=== PATIENT | female | born 1975 | race Caucasian/White ===

== ENCOUNTER 2021-01-21 16:00 | Emergency (ER) | payer OTHER, SELFPAY ==
--- NOTE | ~2021-01-21 | CT_ITS ---
EXAMINATION: CT BRAIN W/O DATE: 01/21/2021 17:30 INDICATION: Left upper extremity numbness TECHNIQUE: Computed tomography (CT) of the head was performed without intravenous contrast. The dose- length product was 605.33 mGy-cm. Automated exposure control and iterative reconstruction technique w ere employed. COMPARISON: No prior studies for comparison. FINDINGS: Normal brain parenchymal volume for age. Normal mcclain-white differentiation. No acute intrac ranial hemorrhage, infarction, mass or mass effect. No ventriculomegaly or midline shift. Midline sagittal images demonstrate a normal corpus callosum, c raniovertebral junction and sella turcica. Basilar cisterns are patent. Paranasal sinuses and mastoids are pneumatized. No depressed skull fractures. IMPRESSION: 1. No acute intracranial abnormality. Reviewed, dictated and finalized at location A. IAL EVENTS DRIVER
--- NOTE | ~2021-01-21 | XR_ITS ---
EXAMINATION: XR chest 2V DATE: 01/21/2021 16:45 INDICATION: Chest pressure. TECHNIQUE: Frontal and lateral views of the chest were obtained. COMPARISON: Chest 2 views 10/19/2018, CT abdomen and pelvis 10/19/2018 FINDINGS: There is mild scarring at the lung apices. No pleural effusion or pneumothorax. The heart s ize is normal. IMPRESSION: 1. Stable mild scarring at the lung apices. Reviewed, dictated and finalized at location B. EY DISPATCHER
--- NOTE | 2021-01-21 16:23 | ECG_ITS ---
Measurements Intervals [place] Rate: 85 P: 69 HI: 189 QRS: 76 QRSD: 94 T: 44 QT: 350 QTc: 418 Interpretive Statements SINUS RHYTHM POSSIBLE LEFT ATRIAL ENLARGEMENT MINIMAL Q WAVES- INFERIOR LEADS BASELINE ARTIFACT- I, II, AVR, AVL BORDERLINE ECG Electronically Signed On 01-21-2021 17:05:37 TERRAZZO HELPER by Abdirashid Barros D.O.
[2021-01-21 16:27] VITALS: BP 169/91; PULSE 89; RESP 18; TEMP 36.3; O2SAT 100
--- NOTE | 2021-01-21 17:00 | ED.CHESTPAIN ---
HPI - Chest Pain General Chief Complaint: Chest Pain Stated Complaint: left arm numbness Time Seen by Provider: 01/21/21 17:00 Source: patient, family, RN notes reviewed and old records reviewed Mode of arrival: ambulatory Limitations: no limitations History of Present Illness HPI narrative: 45 years old white male presented to the ED with sudden onset of left upper extremity numbness, tingling, it felt weird, then started having pressure at the left side of neck left side of face and the head, blood pressure was elevated at this time,. Patient denies any fever, chills, nausea, vomiting, shortness of breath. History of depression, currently on no medications. Patient does not smoke or drink or uses drugs. Related Data Allergies Allergy/AdvReac Type Severity Reaction Status Date / Time latex Allergy Mild RASH/HIVES Verified 01/21/21 17:43 Penicillins Allergy Mild RASH/HIVES Verified 01/21/21 17:43 Review of Systems Review of Systems: CONSTITUTIONAL: Denies fever, chills, or sweats. EYES: Denies visual changes, redness, or discharge. ENT: Denies rhinorrhea, congestion, sore throat, or otalgia. CARDIOVASCULAR: Denies chest pain, palpitations, or edema. RESPIRATORY: Denies cough or dyspnea. GASTROINTESTINAL: Denies abdominal pain, nausea, vomiting, or diarrhea. GENITOURINARY: Denies dysuria or hematuria. SKIN: Denies rash or itching. MUSCULOSKELETAL: Denies back pain, joint pain, or myalgia. NEUROLOGIC: Denies headache, numbness, or weakness. PSYCHIATRIC: Denies anxiety or depression. Exam Narrative: General appearance: Well-developed, well-nourished, restless, at the bedside, patient is hyperventilating. Skin: Normal color Head: Normocephalic, nontraumatic Eyes: Clear conjunctiva ENT: Oropharynx normal, ears normal, nose normal Neck: Supple, nontender Chest and respiratory: Airway patent, no respiratory distress, no accessory muscle use Heart: Regular rate/rhythm Abdomen: Soft, nontender, no organomegaly, quiet bowel sounds Vascular: Normal peripheral pulses, normal capillary refill. Musculoskeletal: Normal range of motion, nontender back Neurologic: Alert and oriented ?3, FLOOR RENOVATOR is normal as tested, no gross motor deficit Course Course Emergency Course: Stable Vital Signs Vital signs: Vital Signs Temperature 36.3 C L 01/21/21 16:27 Pulse Rate 89 01/21/21 16:27 Respiratory Rate 18 01/21/21 16:27 Blood Pressure 169/91 H 01/21/21 16:27 Pulse Oximetry 100 01/21/21 16:27 Temperature 36.3 C L 01/21/21 16:27 Pulse Rate 85 01/21/21 18:04 Respiratory Rate 18 01/21/21 18:04 Blood Pressure 145/88 H 01/21/21 18:04 Pulse Oximetry 100 01/21/21 18:04 MDM - Chest Pain MDM Narrative Medical decision making narrative: Anxiety-like reaction is my concern. Differential Diagnosis Differential diagnosis: Likely other (Paresthesia, migraine headache, anxiety related symptoms) Lab Data Result diagrams: 01/21/21 16:58 01/21/21 16:58 Labs: Lab Results 01/21/21 01/21/21 01/21/21 Range/Units 16:58 16:58 17:38 WBC 8.5 (4.5-10.0) K/mm3 RBC 4.62 (4.2-5.4) M/mm3 Hgb 14.4 (12.0-15.0) g/dL Hct 41.3 (37.0-47.0) % MCV 89.4 (80-100) fl MCH 31.2 (26-34) pg MCHC 34.9 (32-36) g/dl RDW 11.8 (11.5-14.5) % Plt Count 353 (150-375) k/mm3 MPV 8.6 (7.4-10.4) fl Immature Gran % (Auto) 0.6 H (0-0.5) % Neut % (Auto) 59.8 (45.5-73.1) % Lymph % (Auto) 27.5 (18.3-44.2) % [place] % (Auto) 7.3 (2.6-8.5) % Eos % (Auto) 3.6 (0-4.4) % Baso % (Auto) 1.2 (0.2-1.2) % Lymph # (Auto) 2.34 (0.9-3.2) K/mm3 [place] # (Auto) 0.6 (0.1-0.6) K
[2021-01-21 17:04] LABS: Basophils Absolute Auto 0.1 K/mm3 (0.0-0.1); Basophils Percent Auto 1.2 % (0.2-1.2); Eosinophils Absolute Auto 0.3 K/mm3 (0-0.3); Eosinophils Percent Auto 3.6 % (0-4.4); Hematocrit 41.3 % (37.0-47.0); Hemoglobin 14.4 g/dL (12.0-15.0); Immature Granulocyte Absolute 0.05 K/mm3 (0.00-0.031); Immature Granulocyte Percent A 0.6 % (0-0.5); Lymphocytes Absolute Auto 2.34 K/mm3 (0.9-3.2); Lymphocytes Percent Auto 27.5 % (18.3-44.2); Mean Corpuscular HGB Conc 34.9 g/dl (32-36); Mean Corpuscular Hemoglobin 31.2 pg (26-34); Mean Corpuscular Volume 89.4 fl (80-100); Mean Platelet Volume 8.6 fl (7.4-10.4); Monocytes Absolute Auto 0.6 K/mm3 (0.1-0.6); Monocytes Percent Auto 7.3 % (2.6-8.5); Neutrophils Absolute Auto 5.1 K/mm3 (1.3-6.7); Neutrophils Percent Auto 59.8 % (45.5-73.1); Platelet Count Result 353 k/mm3 (150-375); Red Blood Count 4.62 M/mm3 (4.2-5.4); Red Cell Distribution Width 11.8 % (11.5-14.5); White Blood Count 8.5 K/mm3 (4.5-10.0)
[2021-01-21 17:21] LABS: Alanine Aminotransferase 13 U/L (4-35); Albumin Level 4.5 g/dL (3.5-5.1); Alkaline Phosphatase 68 U/L (38-126); Anion Gap 7 mmol/L (8-16); Aspartate Amino Transferase 22 U/L (14-36); Bilirubin,Total 0.4 mg/dL (0.2-1.3); Blood Urea Nitrogen 18 mg/dL (7-17); Calcium 9.6 mg/dL (8.4-10.2); Carbon Dioxide 28 mmol/L (22-30); Chloride 103 mmol/L (98-107); Estimated CRCL calculation 53 ml/min; Estimated Glomerular Filt Rate > 60; Glucose 93 mg/dL (65-110); Lipase 160 U/L (23-300); Potassium 4.1 mmol/L (3.4-5.0); Sodium 138 mmol/L (137-145)
[2021-01-21 17:32] LABS: Troponin I < 0.012 ng/mL (0.000-0.034)
[2021-01-21] MEDS: LORazepam INJ (*CRX) 2 MG/ML VIAL 1 MG IV PUSH (17:57)
[2021-01-21 17:59] VITALS: PULSE 87
[2021-01-21 18:03] LABS: Partial Thromboplastin Time 28.8 SECONDS (22.3-36.8); Prothrombin Time 12.9 Seconds (11.1-14.7)
[2021-01-21 18:04] VITALS: BP 145/88; PULSE 85; RESP 18; O2SAT 100
[2021-01-21 19:20] VITALS: BP 133/76; PULSE 100; RESP 18; O2SAT 100
== END 2021-01-21 19:20 | disposition home or self-care (01) ==
PROVIDERS: Emergency Provider Emergency Medicine; PCP Internal Medicine
DX: F45.8 Other somatoform disorders (principal)
CPT/HCPCS: 36415; 70450; 71046; 80053; 83690; 84484; 85025; 85610; 85730; 93005; 96374; 99284; J2060

== ENCOUNTER 2023-05-08 13:23 | Emergency (ER) | payer OTHER, SELFPAY ==
[2023-05-08 13:37] VITALS: BP 154/87; PULSE 99; RESP 16; TEMP 37.4; O2SAT 100
[2023-05-08 13:39] VITALS: BP 154/87; PULSE 99; RESP 16; TEMP 37.4; O2SAT 100
--- NOTE | 2023-05-08 13:53 | ED.GENADULT ---
HPI - General Adult General Chief complaint: Headache <Flakita Gupta APRN - Last Filed: 05/08/23 20:03> Stated complaint: HEADACHE/FACIAL DROOPING <Flakita Gupta APRN - Last Filed: 05/08/23 20:03> Time Seen by Provider: 05/08/23 13:53 <Flakita Gupta APRN - Last Filed: 05/08/23 20:03> Source: patient, RN notes reviewed and old records reviewed <Flakita Gupta APRN - Last Filed: 05/08/23 20:03> Mode of arrival: ambulatory <Flakita Gupta APRN - Last Filed: 05/08/23 20:03> Limitations: no limitations <Flakita Gupta APRN - Last Filed: 05/08/23 20:03> History of Present Illness HPI narrative: 47-year-old female presents to the [facility] with 3 day history of a left-sided headache, facial drooping has been intermittent. Patient reports that she recently has been treated for a sinus infection. Patient reports that she had COVID in December of 2022, states that she did a round of azithromycin and steroids, around of doxycycline as well as around of Levaquin and another round of steroids, recently finished them a couple of days ago. States that she is just not getting any better. Having sharp pain in the left ear. Patient reports a history of being diagnosed with trigeminal neuralgia approximately 20 years ago. Tried making an appointment with her primary care provider, has an appointment on Thursday. No facial droop noted on exam. Able to lift eyebrows, move mouth symmetrically. No asymmetry noted States that she does have a history of migraines and did take her migraine medication as well as Melissa D <Patrica Mar APRN - Last Filed: 05/08/23 20:03> Onset (ago): day(s) (3) <Patrica Mar APRN - Last Filed: 05/08/23 20:03> Treatments prior to arrival: other (Antibiotics, steroids, migraine medication) <Patrica Mar APRN - Last Filed: 05/08/23 20:03> Related Data Home medications: Home Medications Medication Instructions Recorded Confirmed diclofenac sodium 75 mg 75 mg PO BID 05/08/23 05/08/23 tablet,delayed release fexofenadine 60 mg-pseudoephedrine 1 tablet PO DAILY PRN Allergy 05/08/23 05/08/23 ER 120 mg tablet,ext.release,12 hr Symptoms (Melissa-D 12 Hour) golimumab 12.5 mg/mL intravenous See Rx Instructions .Route .COMPLEX 05/08/23 05/08/23 solution montelukast 10 mg tablet 10 mg PO HS 05/08/23 05/08/23 tramadol 50 mg tablet 50 mg PO PRN PRN Pain, Moderate 05/08/23 05/08/23 <Flakita Gupta STRUCTURAL ANALYSIS ENGINEER - Last Filed: 05/08/23 20:03> Allergies/adverse reactions: Allergies Allergy/AdvReac Type Severity Reaction Status Date / Time latex Allergy Mild RASH/HIVES Verified 05/08/23 13:35 Penicillins Allergy Mild RASH/HIVES Verified 05/08/23 13:35 <Flakita Gupta STRUCTURAL ANALYSIS ENGINEER - Last Filed: 05/08/23 20:03> Review of Systems Review of Systems: All systems reviewed & are unremarkable except as noted in HPI and below <Flakita Gupta STRUCTURAL ANALYSIS ENGINEER - Last Filed: 05/08/23 20:03> Constitutional: Constitutional: Reports no additional constitutional complaints <Flakita Gupta APRN - Last Filed: 05/08/23 20:03> Eyes: Eyes: Reports no additional eye complaints <Flakita Gupta APRN - Last Filed: 05/08/23 20:03> ENT: Reports system reviewed and no additional complaints, except as documented <Flakita Gupta STRUCTURAL ANALYSIS ENGINEER - Last Filed: 05/08/23 20:03> Reports as per HPI <Patrica Mar, STRUCTURAL ANALYSIS ENGINEER - Last Filed: 05/08/23 20:03> Cardiovascular: Cardiovascular: Reports no additional cardiovascular complaints, Denies chest pain and Denies dyspnea <Flakita Gupta STRUCTURAL ANALYSIS ENGINEER - Last Filed: 05/08/23 20:03> Respiratory: Respiratory: Reports no additional respiratory complaints, Denies cough and Denies dyspnea <Flakita Gupta STRUCTURAL ANALYSIS ENGINEER - Last Filed: 05/08/23 20:03> Musculoskeletal: Musculoskeletal: Reports no additional musculoskeletal complaints <Flakita Gupta, RAD - Last Filed: 05/08/23 20:03> Neur
== END 2023-05-08 14:15 | disposition home or self-care (01) ==
PROVIDERS: Emergency Provider Nurse Practitioner Family; PCP Internal Medicine
DX: F41.9 Anxiety disorder, unspecified (principal); R51.9 Headache, unspecified; J32.8 Other chronic sinusitis; Z79.899 Other long term (current) drug therapy; Z79.891 Long term (current) use of opiate analgesic
CPT/HCPCS: 99213; G0463

== ENCOUNTER 2024-10-03 17:38 | Emergency (ER) | payer OTHER, SELFPAY ==
--- NOTE | ~2024-10-03 | CT_ITS ---
CLINICAL INDICATION: Left upper quadrant pain COMPARISON: 10/19/2018. TECHNIQUE: Multiple contiguous axial images of the abdomen and pelvis were performed following the ad ministration of with 100 mL Omnipaque-350 intravenous contrast The dose-length product (DLP) was 285.91 mGy-cm. Automated exposure control and iterative reconstruction technique were employed. FINDINGS/OBSERVATIONS: Visualized lower thorax: The bilateral lung bases are clear. The heart is of normal size, without pericardial effusion. Liver: The liver demonstrates homogeneous enhancement and is not enlarged. Gallbladder and biliary system: The gallbladder is only minimally distended, and otherwise unremarkable. Pancreas: The pancreas enhances homogeneously without ductal dilatation. Spleen: Punctate calcifications identified within the splenic parenchyma, suggesting prior granulomat ous disease. The remainder of the spleen otherwise enhances homogeneously and is not enlarged. Kidneys: The bilateral kidneys enhance symmetrically without hydronephrosis or renal calculi. Adrenal glands: Unremarkable. Gastrointestinal tract: Colonic diverticulosis without surrounding inflammatory change. Fecal stasis within the colon. Appendix: The appendix is not definitively visualized. However, no pericecal inflammatory change is identified suggest the presence of acute appendicitis. Vasculature: Unremarkable. Lymph nodes: No pathologically enlarged or morphologically suspicious lymph nodes within the retroperitoneum or at the root of the mesentery. Pelvic structures: The bladder is only minimally distended, and otherwise unremarkable. The uterus is anteverted and anteflexed. Body wall and musculoskeletal: Small fat-containing umbilical hernia. No significant degenerative disease within the lower thoracic or lumbosacral spine. IMPRESSION: No acute findings within the lower chest, abdomen or pelvis, as detailed above. Reviewed, dictated and finalized at location A.
--- NOTE | ~2024-10-03 | XR_ITS ---
CHEST RADIOGRAPH CLINICAL HISTORY: LUQ abd pain . COMPARISON: 01/21/2021 TECHNIQUE: Single portable view of the chest. FINDINGS The cardiomediastinal silhouette is unremarkable. The lungs are clear. IMPRESSION: No focal infiltrate or effusion. Reviewed, dictated and finalized at location A.
--- OUTSIDE RECORDS SUMMARY | 2024-10-03 17:42 | XMS_ITS | Clinical Summary ---
Author Organization [facility] Address [address], [facility] [address] [place] [address] Phone Care Team Providers Care Eyeglass Frame Truer Name Role Phone Unavailable Primary Care Provider Unavailabl e Allergies Active Allergy Reactions Criticality Noted Date Comments Latex Hives Medium 11/25/2018 Penicillins Itching Medium 11/25/2018 Did allergy tests and was told not to take penicillin medication. Topiramate Other (see Comments) Medium 12/21/2018 Gi things and felt awful Medications montelukast (SINGULAIR) 10 MG Tablet Take 10 mg by mouth every evening. Active pantoprazole (PROTONIX) 40 MG Tablet Delayed Response Take 40 mg by mouth daily. Active Albuterol Sulfate (PROAIR RESPICLICK) 108 (90 Base) MCG/ACT AEROSOL POWDER, BREATH ACTIVATED 90 mcg Daily as needed. 03/24/2016 Active Fexofenadine-Ps eudoephedrine (TOLU-D PO) Take 1 Tab by mouth daily. Active ketotifen (ZADITOR) 0.025 % Solution Place 1 Drop in affected eye(s) 2 times daily. Active Magnesium 400 MG Tablet Take 1 Tab by mouth daily. Active Family History Medical History Relation Name Comments Heart Disease Father ( A-FIB) Hypertension Father Rheumatoid Arthritis Father ankylos ing spondylitis Aneurysm Mother cerebral Colon Cancer Paternal Grandmother Cancer Paternal Uncle liver Relation Name Status Comments Father High blood pres sure Mother Irregular heart beat, anxiety, Gerd, Ulcers Paternal Grandmother Paternal Uncle Social History Tobacco Use Types Packs/Day Years Used Date Smoking Tobacco: Never Smokeless Tobacco: Never Alcohol Use Standard Drinks/Week Comments Not Currently 0 (1 standard drink = 0.6 oz pur e alcohol) AUDIT-C Answer Date Recorded Frequency of Alcohol Consumption Monthly or less 11/25/2018 Average Number of Drinks Not on file 019 Frequency of Binge Drinking Not on file 11/01 Comments No Sex and Gender Information Value Date Recorded Sex Assigned at Not on file Legal Sex Female 11:49 PM CDT Gender Identity Not on file Sexual Orientation Not on file 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 on file Not on file Not on file Last Filed Vital Signs Vital Sign Reading Time Taken Comments Blood Pressure 123/86 02/28/2019 10:11 AM ORCHARD SPRAYER Pulse 69 02/28/2019 10:11 AM ORCHARD SPRAYER Temperature 36 C (96.8 F) 02/28/2019 10:11 AM ORCHARD SPRAYER Respiratory Rate 17 02/28/2019 10:11 AM ORCHARD SPRAYER Oxygen Saturation 100% 02/28/2019 10:11 AM ORCHARD SPRAYER Inhaled Oxygen Concentration - - Weight 56.7 kg (125 lb) 12/21/2018 11:00 AM CDT Height 157.5 cm (5' 2) 12/21/2018 11:00 AM CDT Body Mass Index 22.86 12/21/2018 11:00 AM CDT Plan of Treatment Health Maintenance Due Date Last Done Comments Hepatitis C Virus (HCV) Screening 1973 TdaP Immunization 1973 Hepatitis B Immunization (1 of 3 - 19+ 3-dose series) 1992 Pap Smear 1994 Cervical Cancer Screening (CCS) 10/30/2003 HPV/Cotest 10/30/2003 Cologuard 2018 Immunochemical Fecal Occult Blood 2018 Pneumococcal Immunization (5 0+ years) (1 of 1 - PCV) 10/30/2023 Zoster Immunization (1 of 2) 10/30/2023 SARS-COV-2 Immunization ( - 2023- season) 2023 02/21/2021, 03/29/2020, 03/01/2020 Colonoscopy 02/29/2024 02/28/2019 Colorectal Cancer Screening 02/29/2024 Influenza Immunization (#1) 2024 Respiratory Syncytial Virus (RSV) Immunization (Adult) (1 - 1-dose 75+ series) 2048 Human Papillomavirus (HPV) Immunization Aged Out No longer eligible b ased on patient's age to complete this topic Meningococcal Immunization (ACWY) Aged Out No longer eligible b ased on patient's age to complete this topic Rotavirus Immunization Aged Out No lo nger eligible based on patient's age to complete this topic
--- OUTSIDE RECORDS SUMMARY | 2024-10-03 17:42 | XMS_ITS | Clinical Summary ---
Author Organization [facility] [address] Address [address] [place] [address] Phone Care Team Providers Care Ground Support Agent Name Role Phone Celio Bray MD Primary Care Provider [phone] Allergies Active Allergy Reactions Criticality Noted Date Comments Latex Hives Reaction: Hives, Penicillins Hives Reaction: Hives, Sulfa Other (See comments) High 12/11/2023 Neurological reaction Topiramate Stomach upset,Other (See comments) Medium 12/21/2018 Gi things and felt awful Medications levonorgestrel (MIRENA) 20 mcg/24 hr (5 years) IUD as directed by Intrauterine route 0 0 5 Active montelukast (SINGULAIR) 10 mg tablet take 1 tablet by oral route every day in the evening 0 0 7 Active Additional Information Patient not taking.Reported on 08/25/2024 albuterol sulfate (PROAIR RESPICLICK) 90 mcg/actuation aerosol powdr breath activated inhale 2 puff by inhalation route every 4 - 6 hours as needed 0 Inhaler [address] (VOLTAREN) 75 mg EC tablet 3 Active meclizine (ANTIVERT) 25 mg tablet Take 1 tablet (25 mg total) by mouth 3 (three) times a day as needed 3 Active fexofenadine-ps eudoephedrine (TOLU-D) 60-120 mg per 12 hr tablet Take 1 tablet by mouth 2 (two) times a day 1 Active estradioL (VIVELLE-DOT) 0.05 mg/24 hrIndications:M enopausal symptoms Place 1 patch on the skin 2 (two) times a week 8 patch 14 3 Active Additional Information Patient not taking.Reported on 08/25/2024 ubrogepant (Ubrelvy) 50 mg tablet Take 1 tablet (50 mg total) by mouth once as needed 2 Active Active Problems Problem Noted Date Diagnosed Date Dizziness and giddiness 07/09/2022 Assessment & Plan (07/09/2022 1:32 PM CDT): Hearing test [facility] CT Angiogram - call with results Family history of cerebral aneurysm 07/09/2022 Assessment & Plan (07/09/2022 1:33 PM CDT): CT Angiogram - call with results Sensorineural hearing loss (SNHL) of both ears 0 07/09/2022 Assessment & Plan (07/09/2022 1:33 PM CDT): Hearing test [facility] MVP (mitral valve prolapse) 12/29/2019 Arthritis 12/29/2019 Migraine 08/20/2014 Overview (06/05/2016): Migraines Asthma 08/20/2014 Overview (06/05/2016): Asthma Encounters Date Type Department Care Team Description 08/25/2024 11:15 AM CDT Office Visit [facility] [address] [place] [phone] Betsy Colon MD Eczema, unspecified type (Primary Dx); Breast discharge 08/22/2024 [facility] [address] [place] [phone] Betsy Colon MD Patient issue/concern from Last 3 Months Surgical History Surgery Date Site/Laterality Comments DILATION AND CURETTAGE OF UTERUS Missed : D&C x 3 -, , 07 SECTION 03/02/1998 - 03/01/1999 Breech Medical History Medical History Date Comments MVP (mitral valve prolapse) 12/29/2019 Arthritis 12/29/2019 Family History Medical History Relation Name Comments COPD Father Heart failure Father Congestive hea rt failure; Hypertension Father Other Father Ankylosing spon dylitis; Rheum arthritis Father Other Maternal Grandfather Mesothe lioma; Cause of : Mesothelioma Cerebral aneurysm Mother Mitral valve prolapse Mother Colon cancer Paternal Grandmother Relation Name Status Comments Father Maternal Grandfather Mother Paternal Grandmother Social History Tobacco Use Types Packs/Day Years Used Date Smoking Tobacco: Never Smokeless Tobacco: Never Tobacco Cessation:Counseling Given: Not Answered Alcohol Use Standard Drinks/Week Comments Never 0 (1 standard drink = 0.6 oz pur e alcohol) AUDIT-C Answer Date Recorded Q1: How often do you have a drink containing alc ohol? 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 file Not on file Not on file Obstetrics History Para Term AB IAB SAB Ectopic Multiple Livin g Live Births 5 2 2 0 3 3 2 2 Date Outcome GA Total Labor Labor/2nd/3rd Weight Sex Type Anes PTL Dinah A1 A5 Name Clin 1996 SAB D&C 1997 SAB D&C 1998 Term 3.6 kg (7 lb 15 oz) M CS-LT ranv Living 2001 Term 3.374 kg (7 lb 7 oz) F Living 2006 SAB D&C Last Filed Vital Signs Vital Sign Reading Time Taken Comments Blood Pressure 140/92 08/25/2024 11:37 AM CDT Pulse 84 07/09/2022 1:04 PM CDT Temperature 36.3 C (97.4 F) 07/09/2022 1:04 PM CDT Respiratory Rate 16 07/09/2022 1:04 PM CDT Oxygen Saturation 99% 07/09/2022 1:04 PM CDT Inhaled Oxygen Concentration - - Weight 65.3 kg (144 lb) 08/25/2024 11:37 AM CDT Height 160 cm (5' 3) 12/11/2023 9:52 AM CDT Body Mass Index 25.51 12/11/2023 9:52 AM CDT Plan of Treatment Health Maintenance Due Date Last Done Comments Colon Cancer Screening-Colonoscopy 1973 Depression Screening 1973 Hepatitis C Screening 1973 DTaP/Tdap/Td Vaccine (1 - Tdap) 1984 Hepatitis B Screening 10/30/1991 Pneumococcal vaccine <65 (1 of 2 - PCV) 1992 Zoster Vaccine (1 of 2) 10/30/2023 Covid-19 Vaccine (4 - 2023-2 5 season) 2023 02/21/2021, 03/29/2020, 03/01/2020 Influenza Vaccine (#1) 2024 Cervical Cancer Screening 12/10/20242023, 12/11/2023, 12/29/2019 Regular Well Visit/Exam 18-64 12/10/2024, 11/21/2022, 08/23/2021, Additional history exists Breast Cancer Screening-Mammogram 12/17/2024 12/18/2023, 11/21/2022, 08/23/2021, Additional history exists Procedures Procedure Name Priority Date/Time Associated Diagnosis Comments SCREENING MAMMOGRAM BILATERAL W DERICK Schedule Routine, Read Routine (OP Routine) 12/18/2023 2:00 PM CDT Encounter for screening mammogram for breast cancer HIGH RISK HPV DNA DETECTION WITH GENOTYPING Routine 12/11/2023 1:00 PM CDT Screening for malignant neoplasm of the cervix from Last 3 Months or Most Recently Relevant to Health Maintenance Results * Screening Mammogram Bilateral W Derick (12/18/2023 2:00 PM CDT) Anatomical Region Laterality Modality Breast Bilateral Mammography 12/18/2023 3:41 PM CDT Impressions 12/18/2023 3:41 PM CDT There is no mammographic evidence of malignancy. A 1 year screening mammogram is recommended. BI-RADS: 1 - Negative. The patient has been or will be contacted. The patient will be entered into a reminder system with a target due date of 1 year for her next mammogram. Electronically signed by: Chandan Ahn M.D. Narrative 12/18/2023 3:41 PM CDT EXAMINATION: SCREENING MAMMOGRAM BILATERAL W DERICK ORDERING HEALTHCARE PROVIDER: BETSY COLON HISTORY: Routine screening mammography. COMPARISON: 11/21/2022, 08/23/2021, 11/20/2019 TECHNIQUE: CC and MLO views of the bilateral breasts were obtained with digital technique using breast tomosynthesis with C view. Computer aided detection was utilized. FINDINGS: DENSITY: There are scattered areas of fibroglandular density. BREASTS: There are no suspicious masses, suspicious calcifications, or other suspicious findings in either breast. There has been no suspicious interval change. Betsy Colon MD IMG MAMMO PROCEDURES Final Result * High Risk HPV DNA Detection with Genotyping (Molecular component) (12/11/2023 1:00 PM CDT) HPV HR 16 Not Detected Not Detected [facility] Comment:Testing performed by : [facility], [address] [place]., [address] HPV HR 18 Not Detected Not Detected [facility] Comment:Testing performed by : [facility], [address] [place]., [address] HPV HR Non 16/18 Not Detected Not Detected [facility] Comment: Interpretive Data Nucleic acid amplification for detection of high-risk Human Papilloma virus (HPV) is performed by the Vicky Blanquita 6800 HPV test. This assay specifically detects HPV-16 and HPV-18 genotypes. The following HPV genotypes are detected as high-risk HPV: HPV-31, 33, 35, ,39, 45, 51, 52, 56, 58, 59, 66, and 68. This assay has been approved by the [place] Food and Drug Administration for detection of HPV in cervical specimens collected by a physician using an endocervical brush/spatula or cervical broom and placed in the ThinPrep Pap Test PreservCyt collection containers. The performance characteristics of this test have been verified by the [facility] Infectious Disease laboratory. Correlate with separately reported cytology results, as applicable. Interpretive data last revised 22 Testing performed by: [facility], [address] [place]., [address] Endocervical 12/11/2023 1:00 PM CDT 12/14/2023 12:36 PM CDT Narrative [facility] - 12/14/2023 7:36 PM CDT Clinical history and diagnosis->DX Z12.4 Testing type->Screening Last menstrual period (date if known)->N/A Contraceptive use->IUD Previous negative PAP?->Yes Betsy Colon MD LAB BODY FLUIDS AND S TOOLS ORDERABLES Final Result [facility] [address] Department [place] [address] [facility] from Last 3 Months or Most Recently Relevant to Health Maintenance Insurance [employer] Care Teams Ground Support Agent Relationship Specialty Start Date End Date Celio Bray MD PCP - General 06/26/16
--- OUTSIDE RECORDS SUMMARY | 2024-10-03 17:42 | XMS_ITS | Clinical Summary ---
Author Organization [facility] Address [address] [place] [address] Care Team Providers Care Associate Professor Physician Name Role Phone Celio Bray MD Primary Care Provider [phone] Source Comments [facility],non-owned Affiliates and Associated Physician Practices is amultiple site organization consisting of ambulatory clinics and hospital sitesin [place], [place], [place] and [place]. This disclosure is being madepursuant to the Care Everywhere program and may not contain all information available regarding this patient. Last updated 17.[facility] Social History Tobacco Use Types Packs/Day Years Used Date Smoking Tobacco: Never Assessed Comments Unknown Sex and Gender Information Value Date Recorded Sex Assigned at Not on file Legal Sex Female 6:59 AM GROUP MANAGING DIRECTOR Gender Identity Not on file Sexual Orientation Not on file Plan of Treatment Health Maintenance Due Date Last Done Comments COLOGUARD (AGES 45-75) - COL ON CA SCREENING 1973 COLON MONITORING 1973 COLONOSCOPY - COLON CA SCREENING 1973 CT COLONOGRAPHY - COLON CA SCREENING 1973 Colorectal Cancer Screening 1973 FIT - COLON CA SCREENING 1973 FLEX SIG - COLON CA SCREENING 1973 LIPID TESTING 1973 HIV SCREENING 1988 HEPATITIS C SCREENING 10/25/1991 DTAP/TDAP/TD VACCINES (1 - Tdap) 1992 HEPATITIS B VACCINE (1 of 3 - 19+ 3-dose series) 1992 PAP SMEAR 1994 MAMMOGRAM 08/24/2023 08/23/2021 PNEUMOCOCCAL VACCINE 50+ (1 of 1 - PCV) 10/30/2023 ZOSTER VACCINE (1 of 2) 10/30/2023 COVID-19 VACCINE (2023-2 5 season) 2023 02/21/2021, 03/29/2020, 03/01/2020 DEPRESSION SCREENING 03/02/2024 INFLUENZA VACCINE (#1) 2024 HIB VACCINE Aged Out No longer eligi ble based on patient's age to complete this topic HPV VACCINE Aged Out No longer eligi ble based on patient's age to complete this topic MENINGOCOCCAL (Group B) VACCINE SHARED DECISION-MAKING Aged Out No longer eligible based on patient's age to complete this topic MENINGOCOCCAL GROUPS A/C/Y/W VACCINE Aged Out No longer eligible b ased on patient's age to complete this topic Insurance [facility] [place] [address] Care Teams Associate Professor Physician Relationship Specialty [place] [address] [place] [id number] PCP - General Internal Medicine 09/30/19
--- OUTSIDE RECORDS SUMMARY | 2024-10-03 17:42 | XMS_ITS | Encounter Summary ---
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 Gender Identity Female 07/11/2022 1:20 PM CDT Sexual Orientation Not on file Occupation Industry Job Start Date Job End Date Not on file Not on file Not on file Not on file documented as of this encounter Plan of Treatment Not on file documented as of this encounter Procedures Procedure Name Priority Date/Time Associated Diagnosis Comments SCAN - RADIOLOGY/IMAGING 09/28/2020 documented in this encounter Results * SCAN - RADIOLOGY/IMAGING (09/28/2020) Anatomical Region Laterality Modality Other us Provider Scanning Final Result documented in this encounter Visit Diagnoses Not on filedocumented in this encounter Care Teams [place] Relationship Specialty Start Date End Date Celio Bray MD PCP - General 06/26/16 documented as of this encounter
--- OUTSIDE RECORDS SUMMARY | 2024-10-03 17:42 | XMS_ITS | Referral Summary ---
Author Organization [facility] [address] Address [address] [place] [address] Phone Care Team Providers Care Manuscript Editor Name Role Phone Celio Bray MD Primary Care Provider [phone] Encounters Date Type Department Care Team Description 08/25/2024 11:15 AM CDT Office Visit [facility] [address] [place] [address] Betsy Colon MD Eczema, unspecified type (Primary Dx); Breast discharge 08/22/2024 Telephone [facility] [address] [place] [address] Betsy Colon MD Patient issue/concern from Last 3 Months Allergies Active Allergy Reactions Criticality Noted Date [...] Plan (07/09/2022 1:32 PM CDT): Hearing test [facility] CT Angiogram - call with results Family history of cerebral aneurysm 07/09/2022 Assessment & Plan (07/09/2022 1:33 PM CDT): CT Angiogram - call with results Sensorineural hearing loss (SNHL) of both ears 0 07/09/2022 Assessment & Plan (07/09/2022 1:33 PM CDT): Hearing test [facility] MVP (mitral valve prolapse) 12/29/2019 Arthritis 12/29/2019 Migraine 08/20/2014 Overview (06/05/2016): Migraines Asthma 08/20/2014 Overview (06/05/2016): Asthma Social History Tobacco Use Types Packs/Day Years [...] on file Legal 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, [address] [place]., [address] HPV HR 18 Not Detected Not Detected [facility] Comment:Testing performed by : [facility], [address] [place]., [address] HPV HR Non 16/18 Not Detected Not [...] this test have been verified by the [facility] Molecular Infectious Disease laboratory. Correlate with separately reported cytology results, as applicable. Interpretive data last revised 22 Testing performed by: [facility], [address] [place]., [address] Endocervical 12/11/2023 1:00 PM CDT 12/14/2023 12:36 PM CDT Narrative [facility] - 12/14/2023 7:36 PM CDT Clinical history and diagnosis->DX Z12.4 Testing type->Screening Last menstrual period (date if known)->N/A Contraceptive use->IUD Previous negative PAP?->Yes us Betsy Colon MD LAB BODY FLUIDS AND S TOOLS ORDERABLES [facility] [address] [place] [address] [facility] from Last 3 Months or Most Recently Relevant to Health Maintenance Insurance [facility] HMO/PPO Address: [address] [address] [place] [address] [facility] CHOICE PLUS [facility] HMO/PPO Address: [place] [address] Care Teams Manuscript Editor Relationship Specialty Start Date End Date Celio Bray MD PCP - General 06/26/16
[2024-10-03 18:21] VITALS: BP 132/82; PULSE 99; RESP 16; TEMP 36.7; O2SAT 99
--- NOTE | 2024-10-03 18:26 | ECG_ITS ---
Test Date: 2024-10-03 18:29:06 Measurements Intervals [place] Rate: 76 P: 64 LA: 185 QRS: 58 QRSD: 102 T: 43 QT: 356 QTc: 402 Interpretive Statements SINUS RHYTHM BASELINE ARTIFACT- I, II, AVR, AVL NORMAL ECG No previous ECG available for comparison Electronically Signed On 10-03-2024 19:40:43 CDT by Abdirashid Barros D.O.
--- NOTE | 2024-10-03 18:28 | ED.ABDPAIN ---
HPI - Abdominal Pain General Chief Complaint: Abdominal Pain <Jorge Alberto York APRN - Last Filed: 10/03/24 18:35> Stated Complaint: LLQ abd pain wraps to back <Jorge Alberto York APRN - Last Filed: 10/03/24 18:35> Time Seen by Provider: 10/03/24 21:36 <Jorge Alberto York APRN - Last Filed: 10/03/24 18:35> 48-year-old female presents to the ER complaining of left upper quadrant pain for 1 week. Patient says the pain radiates to her back and up to her left scapula. Patient also reports nausea. Denies any vomiting, diarrhea, blood in her stools, vomiting blood, fevers, body aches, chills, chest pain, shortness of breath or any other symptoms. Patient has only been trying Tylenol without relief. Patient has a history of rheumatoid arthritis. Patient reports a sharp stabbing pain to her left upper quadrant. Focused HPI: GENERAL: Well-appearing, well-nourished, and in no acute distress. HEAD: Normocephalic, atraumatic. CHEST: Clear to auscultation. ?No respiratory distress. HEART: Regular rate and rhythm.? GI: Tenderness to palpation to left upper quadrant and left flank. Bowel sounds are present. Abdomen is soft, nondistended. No guarding or rigidity. No rebound tenderness. No palpable masses. NEURO: ?Alert and oriented x3. Patient screened in triage and initial orders placed.? ?Additional care and disposition to be based upon?diagnostic testing and treatment. <Jorge Alberto York APRN - Last Filed: 10/03/24 18:35> History of Present Illness HPI narrative: Agree with the above HPI. Patient states the pain is located in her epigastrium and left upper quadrant. She describes the pain as a cramping and burning pain. Patient states she cannot identify any aggravating or alleviating factors. She denies chest pain, shortness of breath, cough, congestion, hemoptysis, history of VTE, lower extremity edema, recent surgeries or hospitalizations. Prior abdominal surgeries include a . <Michaela Handy PA-C - Last Filed: 10/04/24 00:37> Related Data Home Medications: Home Medications ?Medication ?Instructions ?Recorded ?Confirmed ?Last Taken ?Type diclofenac sodium 75 mg 75 mg PO BID 05/08/23 05/08/23 Unknown History tablet,delayed release fexofenadine 60 mg-pseudoephedrine 1 tablet PO DAILY PRN Allergy 05/08/23 05/08/23 Unknown History ER 120 mg tablet,ext.release,12 hr Symptoms (Melissa-D 12 Hour) golimumab 12.5 mg/mL intravenous See Rx Instructions .Route .COMPLEX 05/08/23 05/08/23 Unknown History solution montelukast 10 mg tablet 10 mg PO HS 05/08/23 05/08/23 Unknown History tramadol 50 mg tablet 50 mg PO PRN PRN Pain, Moderate 05/08/23 05/08/23 Unknown History <Jorge Alberto York APRN - Last Filed: 10/03/24 18:35> Allergies/Adverse Reactions: Allergies Allergy/AdvReac Type Severity Reaction Status Date / Time latex Allergy Mild RASH/HIVES Verified 05/08/23 13:35 Penicillins Allergy Mild RASH/HIVES Verified 05/08/23 13:35 <Jorge Alberto York APRN - Last Filed: 10/03/24 18:35> Review of Systems Review of Systems: All systems reviewed & are unremarkable except as noted in HPI and below <Michaela Handy PA-C - Last Filed: 10/04/24 00:37> PMFSH Past Medical History Medical History: Medical History Migraine <Jorge Alberto York APRN - Last Filed: 10/03/24 18:35> Exam Narrative: GENERAL: Well-appearing, well-nourished, and in no acute distress. HEAD: Normocephalic, atraumatic. EYES: EOMI. ENT: Nares clear, no rhinorrhea or epistaxis. Mucous membranes moist. NECK: Supple. CHEST: Clear to auscultation. No respiratory distress. HEART: Regular rate and rhythm. No murmur heard. Normal peripheral pulses. ABDOMEN: Normoactive bowel sounds. Abdomen soft with tenderness to the left upper quadrant and epigastrium. No rebound or rigidity. No CVA tenderness. No overlying skin changes EXTREMITIES: Normal range of motion. No edema. SKIN: Warm, dry, no rash. NEURO: No focal deficits. Alert and oriented x3 <Michaela Handy PA-C - Last Filed: 10/04/24 00:37> Course Vital Signs Vital signs: Vital Signs Temperature 98.1 F 10/03/24 18:21 Pulse Rate 99 10/03/24 18:21 Respiratory Rate 16 10/03/24 18:21 Blood Pressure 132/82 10/03/24 18:21 Pulse Oximetry 99 10/03/24 18:21 Oxygen Delivery Room Air 10/03/24 18:21 Temperature 98.1 F 10/03/24 18:21 Pulse Rate 99 10/03/24 18:21 Respiratory Rate 16 10/03/24 18:21 Blood Pressure 132/82 10/03/24 18:21 Pulse Oximetry 99 10/03/24 18:21 Oxygen Delivery Room Air 10/03/24 18:21 <Jorge Alberto York APRN - Last Filed: 10/03/24 18:35> Vital Signs Temperature 98.1 F 10/03/24 18:21 Pulse Rate 99 10/03/24 18:21 Respiratory Rate 16 10/03/24 18:21 Blood Pressure 132/82 10/03/24 18:21 Pulse Oximetry 99 10/03/24 18:21 Oxygen Delivery Room Air 10/03/24 18:21 Temperature 98.1 F 10/03/24 18:21 Pulse Rate 99 10/03/24 18:21 Respiratory Rate 16 10/03/24 18:21 Blood Pressure 132/82 10/03/24 18:21 Pulse Oximetry 99 10/03/24 18:21 Oxygen Delivery Room Air 10/03/24 18:21 <Michaela Handy PA-C - Last Filed: 10/04/24 00:37> MDM - Abdominal Pain MDM Narrative Medical decision making narrative: 48-year-old female presents to the emergency department for epigastric and left upper quadrant abdominal pain for the past 7-10 days. Triage vitals are stable. Exam is notable for the above. CBC without leukocytosis or anemia. Chemistries are unremarkable. LFTs normal. UA with 6-10 white blood cells 1+ leuk esterase. Patient denies urinary complaints. Will send for urine culture. Lipase is normal. EKG shows normal sinus rhythm with rate of 76 ppm, normal DC interval, normal QRS duration, normal QTC, no ischemic changes. Troponin is undetectable. Chest x-ray shows no focal infiltrate or effusion. CT abdomen pelvis shows no acute findings within the lower chest, abdomen or pelvis. I did consider PE however this seems unlikely as patient is low risk for VTE and has not had any hypoxia or tachycardia in the ED. Patient received Pepcid, Zofran, GI cocktail and Toradol with improvement in symptoms. I suspect patient's symptoms are secondary to gastritis versus gastric ulcer versus GERD. Will start her on omeprazole. Discussed diet changes, refraining from NSAIDs, follow-up with GI and strict ED return precautions. She is agreeable with the plan verbalized understanding. Discharged in stable condition. <Michaela Handy PA-C - Last Filed: 10/04/24 00:37> Lab Data Result diagrams: 10/03/24 18:36 10/03/24 18:36 <Jorge Alberto York APRN - Last Filed: 10/03/24 18:35> Labs: Lab Results 10/03/24 Range/Units 18:36 WBC 8.0 (4.5-10.0) K/mm3 RBC 4.98 (4.2-5.4) M/mm3 Hgb 14.6 (12.0-15.0) g/dL Hct 43.4 (37.0-47.0) % MCV 87.1 (80-100) fl MCH 29.3 (26-34) pg MCHC 33.6 (32-36) g/dl RDW 12.7 (11.5-14.5) % Plt Count 344 (150-375) k/mm3 MPV 9.3 (7.4-10.4) fl Immature Gran % (Auto) 0.1 (0-0.5) % Neut % (Auto) 58.5 (45.5-73.1) % Lymph % (Auto) 31.2 (18.3-44.2) % Bureau % (Auto) 6.4 (2.6-8.5) % Eos % (Auto) 2.2 (0-4.4) % Baso % (Auto) 1.6 H (0.2-1.2) % Lymph # (Auto) 2.50 (0.9-3.2) K/mm3 Bureau # (Auto) 0.5 (0.1-0.6) K/mm3 Eos # (Auto) 0.2 (0-0.3) K/mm3 Baso # (Auto) 0.1 (0.0-0.1) K/mm3 Abs Immat Gran (auto) 0.01 (0.00-0.031) K/mm3 Absolute Neuts (auto) 4.7 (1.3-6.7) K/mm3 Absolute Nucleated RBC 0.000 (0.0-0.012) K/mm3 Nucleated RBC % 0.0 (0.0-0.2) % Sodium 142 (137-145) mmol/L Potassium 3.8 (3.4-5.0) mmol/L Chloride 107 (98-107) mmol/L Carbon Dioxide 26 (22-30) mmol/L Anion Gap 9 (4-12) mmol/L BUN 12 D (7-17) mg/dL Creatinine 0.70 (0.7-1.0) mg/dL Estim Creat Clear Calc 66 ml/min Estimated GFR > 60 (59 - ) Glucose 110 (65-110) mg/dL Calcium 9.7 (8.4-10.2) mg/dL Total Bilirubin 0.4 (0.2-1.3) mg/dL AST 33 (14-36) U/L ALT 22 (6-35) U/L Alkaline Phosphatase 68 (38-126) U/L Troponin I < 0.012 (0.000-0.034) ng/mL Total Protein 8.9 H (6.3-8.2) g/dL Albumin 4.9 (3.5-5.1) g/dL Lipase 176 (23-300) U/L Urine Color Yellow (Yellow) Urine Appearance Clear (Clear) Urine pH 6.0 (5.0-9.0) Ur Specific [place] 1.016 (1.001-1.035) Urine Protein Negative (Negative) mg/dL Urine Glucose (UA) Negative (Negative) mg/dL Urine Ketones Negative (Negative) mg/dL Ur Blood (Man) Negative (Negative) Urine Nitrate Negative (Negative) Urine Bilirubin Negative (Negative) Urine Urobilinogen 0.2 (<2.0) mg/dL Leukocyte Esterase Rfl 1+ H (Negative) TRISH/UL Urine RBC 0-2 (0-2) /hpf Urine WBC 6-10 H (0-3) /hpf Ur Squamous Epith Cells Occasional (Few) /hpf Urine Bacteria Rare /hpf Urine Casts 0-2 <Jorge Alberto York, HOME APPLIANCE WASHING MACHINE MECHANIC - Last Filed: 10/03/24 18:35> Lab Results 10/03/24 Range/Units 18:36 WBC 8.0 (4.5-10.0) K/mm3 RBC 4.98 (4.2-5.4) M/mm3 Hgb 14.6 (12.0-15.0) g/dL Hct 43.4 (37.0-47.0) % MCV 87.1 (80-100) fl MCH 29.3 (26-34) pg MCHC 33.6 (32-36) g/dl RDW 12.7 (11.5-14.5) % Plt Count 344 (150-375) k/mm3 MPV 9.3 (7.4-10.4) fl Immature Gran % (Auto) 0.1 (0-0.5) % Neut % (Auto) 58.5 (45.5-73.1) % Lymph % (Auto) 31.2 (18.3-44.2) % Bureau % (Auto) 6.4 (2.6-8.5) % Eos % (Auto) 2.2 (0-4.4) % Baso % (Auto) 1.6 H (0.2-1.2) % Lymph # (Auto) 2.50 (0.9-3.2) K/mm3 Bureau # (Auto) 0.5 (0.1-0.6) K/mm3 Eos # (Auto) 0.2 (0-0.3) K/mm3 Baso # (Auto) 0.1 (0.0-0.1) K/mm3 Abs Immat Gran (auto) 0.01 (0.00-0.031) K/mm3 Absolute Neuts (auto) 4.7 (1.3-6.7) K/mm3 Absolute Nucleated RBC 0.000 (0.0-0.012) K/mm3 Nucleated RBC % 0.0 (0.0-0.2) % Sodium 142 (137-145) mmol/L Potassium 3.8 (3.4-5.0) mmol/L Chloride 107 (98-107) mmol/L Carbon Dioxide 26 (22-30) mmol/L Anion Gap 9 (4-12) mmol/L BUN 12 D (7-17) mg/dL Creatinine 0.70 (0.7-1.0) mg/dL Estim Creat Clear Calc 66 ml/min Estimated GFR > 60 (59 - ) Glucose 110 (65-110) mg/dL Calcium 9.7 (8.4-10.2) mg/dL Total Bilirubin 0.4 (0.2-1.3) mg/dL AST 33 (14-36) U/L ALT 22 (6-35) U/L Alkaline Phosphatase 68 (38-126) U/L Troponin I < 0.012 (0.000-0.034) ng/mL Total Protein 8.9 H (6.3-8.2) g/dL Albumin 4.9 (3.5-5.1) g/dL Lipase 176 (23-300) U/L Urine Color Yellow (Yellow) Urine Appearance Clear (Clear) Urine pH 6.0 (5.0-9.0) Ur Specific [place] 1.016 (1.001-1.035) Urine Protein Negative (Negative) mg/dL Urine Glucose (UA) Negative (Negative) mg/dL Urine Ketones Negative (Negative) mg/dL Ur Blood (Man) Negative (Negative) Urine Nitrate Negative (Negative) Urine Bilirubin Negative (Negative) Urine Urobilinogen 0.2 (<2.0) mg/dL Leukocyte Esterase Rfl 1+ H (Negative) TRISH/UL Urine RBC 0-2 (0-2) /hpf Urine WBC 6-10 H (0-3) /hpf Ur Squamous Epith Cells Occasional (Few) /hpf Urine Bacteria Rare /hpf Urine Casts 0-2 <Michaela Handy PA-C - Last Filed: 10/04/24 00:37> Imaging Data Radiologist's impression: ITS Impressions Abdomen/Pelvis CT 10/03/24 22:49 IMPRESSION: No acute findings within the lower chest, abdomen or pelvis, as detailed above. Chest X-Ray 10/03/24 23:34 IMPRESSION: No focal infiltrate or effusion. <Jorge Alberto York APRN - Last Filed: 10/03/24 18:35> ITS Impressions Abdomen/Pelvis CT 10/03/24 22:49 IMPRESSION: No acute findings within the lower chest, abdomen or pelvis, as detailed above. Chest X-Ray 10/03/24 23:34 IMPRESSION: No focal infiltrate or effusion. <Michaela Handy PA-C - Last Filed: 10/04/24 00:37> Discharge Plan Discharge Clinical Impression: Abdominal pain, LUQ, Epigastric abdominal pain <Jorge Alberto York APRN - Last Filed: 10/03/24 18:35> Patient Disposition: Home <Jorge Alberto York APRN - Last Filed: 10/03/24 18:35> Condition: Stable <Jorge Alberto York APRN - Last Filed: 10/03/24 18:35> Instructions: Antibiotic Form, Gastritis (DC), Diet for Stomach Ulcers and Gastritis (ED), Abdominal Pain (ED) <Jorge Alberto York APRN - Last Filed: 10/03/24 18:35> Additional Instructions: Please take the omeprazole as directed. Refrain from spicy and acidic foods as discussed as well as alcohol. Refrain from NSAIDs as discussed such as ibuprofen, Motrin, Aleve, Advil, naproxen. Follow-up with the GI physician she may need a endoscopy for further evaluation as discussed. Return to the emergency department if you develop worsening pain, chest pain, shortness of breath, or vomiting blood or what looks like coffee grounds, you develop blood in her stool or dark tarry stools, or other concerning symptoms. <Jorge Alberto York APRN - Last Filed: 10/03/24 18:35> Patient Language: Puerto Rican <Jorge Alberto York APRN - Last Filed: 10/03/24 18:35> Prescriptions: New omeprazole 20 mg capsule,delayed release(DR/EC) 20 mg PO DAILY Qty: 30 0RF No Action tramadol 50 mg tablet 50 mg PO PRN PRN (Reason: Pain, Moderate) montelukast 10 mg tablet 10 mg PO HS fexofenadine-pseudoephedrine [Melissa-D 12 Hour] 60-120 mg tablet extended release 12 hr 1 tablet PO DAILY PRN (Reason: Allergy Symptoms) golimumab 12.5 mg/mL Solution See Rx Instructions .ROUTE .COMPLEX Rx Instructions: 100 mg intravenously ;administer over 30 mins diclofenac sodium 75 mg tablet,delayed release (DR/EC) 75 mg PO BID <Jorge Alberto York APRN - Last Filed: 10/03/24 18:35> Follow-up/Referrals: Chandrakant Sullivan MD [Physician] - Bray,Celio Childers MD [Primary Care Provider] - <Jorge Alberto York APRN - Last Filed: 10/03/24 18:35>
[2024-10-03 18:42] LABS: Hematocrit 43.4 % (37.0-47.0); Hemoglobin 14.6 g/dL (12.0-15.0); Immature Granulocyte Percent A 0.1 % (0-0.5); Lymphocytes Absolute Auto 2.50 K/mm3 (0.9-3.2); Mean Corpuscular HGB Conc 33.6 g/dl (32-36); Mean Corpuscular Hemoglobin 29.3 pg (26-34); Mean Corpuscular Volume 87.1 fl (80-100); Nucleated Red Blood Cells Absolute Auto 0.000 K/mm3 (0.0-0.012); Nucleated Red Blood Cells Perc 0.0 % (0.0-0.2); Platelet Count Result 344 k/mm3 (150-375); Red Blood Count 4.98 M/mm3 (4.2-5.4); White Blood Count 8.0 K/mm3 (4.5-10.0)
[2024-10-03 18:55] LABS: Alanine Aminotransferase 22 U/L (6-35); Albumin Level 4.9 g/dL (3.5-5.1); Alkaline Phosphatase 68 U/L (38-126); Anion Gap 9 mmol/L (4-12); Aspartate Amino Transferase 33 U/L (14-36); Bilirubin,Total 0.4 mg/dL (0.2-1.3); Blood Urea Nitrogen 12 mg/dL (7-17); Calcium 9.7 mg/dL (8.4-10.2); Carbon Dioxide 26 mmol/L (22-30); Chloride 107 mmol/L (98-107); Estimated CRCL calculation 66 ml/min; Estimated Glomerular Filt Rate > 60; Glucose 110 mg/dL (65-110); Lipase 176 U/L (23-300); Potassium 3.8 mmol/L (3.4-5.0); Sodium 142 mmol/L (137-145); Total Protein 8.9 g/dL (6.3-8.2)
[2024-10-03 19:07] LABS: Troponin I < 0.012 ng/mL (0.000-0.034)
[2024-10-03 19:37] LABS: Add Urine Microscopic? YES; Appearance Urine Clear (Clear); Glucose Urine UA Negative (Negative); Leukocyte Esterase Ur 1+ LEU/UL (Negative); Nitrate Urine Negative (Negative); Non Pathogenic Casts 0-2; Specific Grav Ur 1.016 (1.001-1.035)
[2024-10-03] MEDS: FAMOTIDINE 20 MG/2 ML VIAL IV PUSH (21:55)
[2024-10-03] MEDS: ONDANSETRON INJ 4 MG/2 ML VIAL IV PUSH (21:55)
--- OUTSIDE RECORDS SUMMARY | 2024-10-03 22:18 | XMS_ITS | Clinical Summary ---
Author Organization [facility] Address [address] [place] [address] Care Team Providers Care Spa Manager/Esthetician Name Role Phone Celio Bray MD Primary Care Provider [phone] Source Comments [facility],non-owned Affiliates and Associated Physician Practices is amultiple site organization consisting of ambulatory clinics and hospital sitesin [place], [place], [place] and [place]. This disclosure is being madepursuant to the Care Everywhere program and may not contain all information available regarding this patient. 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
[2024-10-03] MEDS: BELLADONNA ALK/PHENOB ELIX 10 ML, MAG HYDROX/ALUMINUM HYD/SIMETH 30 ML, LIDOCAINE 2% VI... PO (23:23)
[2024-10-03] MEDS: KETOROLAC 30 MG/ML VIAL (*BKC) IV PUSH (23:24)
[2024-10-04 00:41] VITALS: BP 127/79; PULSE 89; RESP 17; O2SAT 100
[2024-10-04 00:42] VITALS: BP 127/79; PULSE 89; RESP 17; O2SAT 100
== END 2024-10-04 00:44 | disposition home or self-care (01) ==
PROVIDERS: Emergency Provider Physician Assistant; PCP Internal Medicine
DX: R10.12 Left upper quadrant pain (principal); R10.13 Epigastric pain
CPT/HCPCS: 36415; 71045; 74177; 80053; 81001; 83690; 84484; 85025; 87086; 93005; 96374; 96375; 99284; A9270; J1885; J2405; Q9967